=== PATIENT | female | born 1990 | race African-American/Black ===

== ENCOUNTER 2020-01-13 10:29 | Inpatient (IN) ==
[2020-01-13] MEDS ORDERED: ONDANSETRON 4 MG/2 ML VIAL IV STA (11:03)
[2020-01-13] MEDS ORDERED: SODIUM CHLORIDE 0.9% 1,000 ML IV STA (11:03)
[2020-01-13] MEDS ORDERED: PANTOPRAZOLE 40 MG VIAL IV STA (11:03)
[2020-01-13] MEDS ORDERED: ONDANSETRON 4 MG/2 ML VIAL ONE (11:04)
[2020-01-13] MEDS ORDERED: PANTOPRAZOLE 40 MG VIAL IV ONE (11:04)
[2020-01-13 11:16] LABS: Basophils % 0.6 % (0.0-0.8); Eosinophils # 0.1 10*3/uL (0.0-0.87); Eosinophils % 1.4 % (0.00-10.9); Hematocrit 37.2 VOL% (35.7-47.0); Hemoglobin 11.6 GM/DL (12.0-16.0); Immature Granulocytes % 0.2 %; Immature Granulocytes Absolute 0.01 #; Lymphocytes # 1.9 10*3/uL (1.4-4.0); Lymphocytes % 37.8 % (21.3-54.2); Mean Corpuscular HGB Conc 31.2 GM/DL (32-36); Mean Corpuscular Volume 85.1 FL (87-102); Mean Platelet Volume 12.1 FL (9.6-12.0); Monocytes % 9.7 % (1.7-12.7); Neutrophils % 50.3 % (38.7-73.9); Platelet Count 230 T/CUMM (130-400); Red Blood Count 4.37 MC/CUMM (3.8-5.5); Red Cell Distribution Width 13.2 % (9.3-17.3); White Blood Count 5.1 T/CUMM (4-12)
[2020-01-13] MEDS ORDERED: PROMETHAZINE 25 MG/1 ML VIAL IM STA (11:30)
[2020-01-13 11:34] LABS: Hypochromasia 1+; Microcytosis 1+; Platelet Estimate Adequate
[2020-01-13 11:42] LABS: Alanine Aminotransferase 16 U/L (13-56); Albumin 3.8 G/DL (3.4-5.0); Alkaline Phosphatase 64 U/L (45-117); Aspartate Amino Transferase 18 U/L (0-37); Bilirubin,Total < 0.39 MG/DL (0.2-1.0); Blood Urea Nitrogen 10 MG/DL (7-18); Calcium 9.6 MG/DL (8.5-10.1); Estimated Glom Filtration Rate 101 ML/MIN; Glucose 202 MG/DL (74-106); Total Protein 8.2 G/DL (6.4-8.3)
[2020-01-13 11:44] LABS: Apearance,Urine CLOUDY (Clear); Bilirubin,Urine Negative (Negative); Blood, Urine Negative (Negative); Glucose,Urine (UA) 50 mg/dL (Negative); Ketones,Urine 20 mg/dL (Negative); Mucus,Urine Moderate /LPF (Occasional); Nitrite,Urine Negative (Negative); Protein,Urine 30 MG/DL; RBC,Urine 7 /HPF (0-4); Squamous Epithelial Cell,Urine Many /HPF (0-10); Urine Color Amber (Yellow); Urine Specific Gravity 1.026 (1.001-1.035); WBC,Urine 9 /HPF (0-6)
[2020-01-13] MEDS ORDERED: LABETALOL 20 MG/4 ML SYRINGE IV STA ×2 (12:19→13:20)
[2020-01-13] MEDS ORDERED: ACETAMINOPHEN 325 MG TABLET PO PRN (13:16)
[2020-01-13] MEDS ORDERED: DEXTROSE 10% 250 ML BAG IV PRN (13:16)
[2020-01-13] MEDS ORDERED: GLUCAGON 1 MG VIAL IM PRN (13:16)
[2020-01-13] MEDS ORDERED: DEXTROSE 50% 25 GM/50 ML VIAL IV PRN (13:34)
[2020-01-13] MEDS: SODIUM CHLORIDE 0.9% 1,000 ML IV SCH (13:46)
[2020-01-13] MEDS: cefTRIAXone 1,000 MG in SYRINGE 1 EACH IV SCH (15:35)
[2020-01-13] MEDS ORDERED: hydrALAZINE 20 MG/1 ML VIAL IV STA (15:37)
[2020-01-13] MEDS ORDERED: amLODIPine 5 MG TABLET PO STA (15:39)
[2020-01-13] MEDS: PANTOPRAZOLE INJ 200 MG in SODIUM CHLORIDE 0.9% 250 ML IV SCH (16:19)
[2020-01-13] MEDS: INSULIN LISPRO 100 UNIT/ML SUBCUT SCH ×2 (17:58→21:13)
[2020-01-13] MEDS: ONDANSETRON 4 MG/2 ML VIAL IV PRN (17:58)
[2020-01-13] MEDS: SUCRALFATE 1 GM/10 ML UDCUP PO SCH ×2 (17:59→21:16)
[2020-01-13] MEDS ORDERED: PROMETHAZINE 25 MG/1 ML VIAL IM PRN (20:29)
[2020-01-13 20:33] LABS: Hematocrit 33.1 VOL% (35.7-47.0); Hemoglobin 10.7 GM/DL (12.0-16.0)
[2020-01-13] MEDS ORDERED: PANTOPRAZOLE 40 MG VIAL IV SCH (21:00)
[2020-01-13] MEDS ORDERED: PROMETHAZINE 25 MG/1 ML VIAL IM ONE (21:10)
[2020-01-13] MEDS: hydrALAZINE 20 MG/1 ML VIAL IV PRN (21:11)
[2020-01-14] MEDS: SODIUM CHLORIDE 0.9% 1,000 ML IV SCH (03:49)
[2020-01-14] MEDS: hydrALAZINE 20 MG/1 ML VIAL IV PRN (05:07)
[2020-01-14 07:00] LABS: Immature Granulocytes % 1.1 %; Immature Granulocytes Absolute 0.05 #; Lymphocytes # 1.3 10*3/uL (1.4-4.0); Lymphocytes % 28.4 % (21.3-54.2); Mean Corpuscular HGB Conc 32.4 GM/DL (32-36); Mean Corpuscular Volume 82.5 FL (87-102); Mean Platelet Volume 11.9 FL (9.6-12.0); Monocytes % 9.7 % (1.7-12.7); Neutrophils % 60.8 % (38.7-73.9); Platelet Count 206 T/CUMM (130-400); Red Blood Count 4.12 MC/CUMM (3.8-5.5); Red Cell Distribution Width 13.1 % (9.3-17.3); White Blood Count 4.4 T/CUMM (4-12)
[2020-01-14 07:19] LABS: Hypochromasia 1+; Microcytosis 1+; Platelet Estimate Adequate
[2020-01-14 07:21] LABS: Calcium 8.8 MG/DL (8.5-10.1); Osmolality,Calculated 277.8 MOS/KG (273-304)
[2020-01-14] MEDS ORDERED: POTASSIUM CHLORIDE RIDER 10 MEQ in PREMIX 1 EACH IV SCH (08:00)
[2020-01-14] MEDS: INSULIN LISPRO 100 UNIT/ML SUBCUT SCH ×4 (08:20→20:41)
[2020-01-14] MEDS: SUCRALFATE 1 GM/10 ML UDCUP PO SCH ×4 (08:20→20:43)
[2020-01-14] MEDS: amLODIPine 10 MG TABLET PO SCH (08:21)
[2020-01-14] MEDS ORDERED: POTASSIUM CHLORIDE RIDER 100 ML IV ONE (08:57)
[2020-01-14] MEDS ORDERED: MAGNESIUM SULF RIDER 4 GM in PREMIX 1 EACH IV ONE (09:00)
[2020-01-14] MEDS: POTASSIUM CHLORIDE RIDER 10 MEQ in PREMIX 1 EACH IV SCH ×3 (09:18→16:13)
[2020-01-14] MEDS: SODIUM CHLOR 0.9% KCL 20 MEQ 20 MEQ/1,000 ML BAG IV SCH ×2 (09:51→22:48)
[2020-01-14] MEDS ORDERED: LIDOCAINE 2% 5 ML VIAL ONE (10:00)
[2020-01-14] MEDS ORDERED: propofoL 200 MG/20 ML VIAL IV ONE (10:00)
[2020-01-14] MEDS ORDERED: GLUCAGON 1 MG VIAL IM PRN (12:04)
[2020-01-14] MEDS ORDERED: DEXTROSE 50% 25 GM/50 ML VIAL IV PRN (12:04)
[2020-01-14] MEDS: cefTRIAXone 1,000 MG in SYRINGE 1 EACH IV SCH (14:12)
[2020-01-14] MEDS: PANTOPRAZOLE INJ 200 MG in SODIUM CHLORIDE 0.9% 250 ML IV SCH (16:09)
[2020-01-14] MEDS: ONDANSETRON 4 MG/2 ML VIAL IV PRN (18:08)
[2020-01-14] MEDS: PANTOPRAZOLE 40 MG VIAL IV SCH (20:42)
[2020-01-14] MEDS: LACTATED RINGERS 1,000 ML IV SCH (22:50)
[2020-01-15 05:42] LABS: Basophils % 0.2 % (0.0-0.8); Hematocrit 33.6 VOL% (35.7-47.0); Hemoglobin 10.7 GM/DL (12.0-16.0); Immature Granulocytes % 0.5 %; Immature Granulocytes Absolute 0.03 #; Lymphocytes % 33.6 % (21.3-54.2); Mean Corpuscular HGB Conc 31.8 GM/DL (32-36); Mean Corpuscular Volume 83.4 FL (87-102); Mean Platelet Volume 12.7 FL (9.6-12.0); Monocytes % 8.4 % (1.7-12.7); Neutrophils % 57.3 % (38.7-73.9); Platelet Count 218 T/CUMM (130-400); Red Blood Count 4.03 MC/CUMM (3.8-5.5); Red Cell Distribution Width 13.1 % (9.3-17.3); White Blood Count 6.1 T/CUMM (4-12)
[2020-01-15 06:14] LABS: Calcium 8.5 MG/DL (8.5-10.1)
[2020-01-15] MEDS ORDERED: lisinopriL 20 MG TABLET PO SCH (09:00)
[2020-01-15] MEDS: PANTOPRAZOLE 40 MG VIAL IV SCH (09:54)
[2020-01-15] MEDS: INSULIN LISPRO 100 UNIT/ML SUBCUT SCH ×2 (09:55→13:03)
[2020-01-15] MEDS: amLODIPine 10 MG TABLET PO SCH (09:55)
[2020-01-15] MEDS: POTASSIUM CHLORIDE 20 MEQ TABLET PO SCH ×2 (09:55→13:02)
[2020-01-15] MEDS: SUCRALFATE 1 GM/10 ML UDCUP PO SCH ×2 (09:56→13:02)
[2020-01-15] MEDS: ONDANSETRON 4 MG/2 ML VIAL IV PRN (09:56)
[2020-01-15] MEDS: SODIUM CHLOR 0.9% KCL 20 MEQ 20 MEQ/1,000 ML BAG IV SCH (09:56)
[2020-01-15] MEDS: LACTATED RINGERS 1,000 ML IV SCH (09:59)
[2020-01-15 13:12] VITALS: BP 156/98
[2020-01-15] MEDS: cefTRIAXone 1,000 MG in SYRINGE 1 EACH IV SCH (14:49)
== END 2020-01-15 15:35 | disposition home or self-care (01) | DRG 370 ==
LOC: N.ED 10:29 → SUATTDRO 13:14 → N.EDINP 13:14 → N.3W 17:30 → N.3E 01-14 15:41
PROVIDERS: ADMIT Family Medicine; ATTEND Internal Medicine